=== PATIENT | male | born 1975 | race Two or more races ===

== ENCOUNTER 2020-04-09 23:02 | Emergency (ER) | payer MEDICARE, MEDICAID ==
[~2020-04-09] VITALS: Ht 170.2 cm; Wt 87.5 kg
[2020-04-09] MEDS ORDERED: Acetaminophen 500mg (ES) tab ORAL ONE (23:15)
--- NOTE | 2020-04-09 23:15 | NUR ---
ED Nurse Note: Patient brought into ED from [facility] by [facility] for c/o fever. Per EMS, patient had a fever of 101.1F at facility. Upon ED arrival, patient did not have a fever. Patient currently has no complaint. He is breathing normal and unlabored, stable BP and HR. He is aaox4. No acute distress at this time.
[2020-04-09 23:35] VITALS: BP 121/68
--- NOTE | 2020-04-09 23:36 | Emergency Room Report ---
History of Present Illness General Chief Complaint: Fever Source: Patient Present Illness HPI Disclaimer: Please note that this report is being documented using DRAGON technology. This can lead to erroneous entry secondary to incorrect interpretation by the dictating instrument. HPI: 44-year-old male presents from shelter facility for evaluation of fever. History of paraplegia with chronic stage IV sacral decubitus ulcer, diverting ostomy, chronic Goodman. Patient states he had a temperature of 101 degrees at nursing facility today. He was given Tylenol with good effect however his fever returned. He denies sore throat, nasal congestion, cough, fatigue, diaphoresis, chest pain, palpitations, shortness of breath, nausea, vomiting, diarrhea. Chronic Goodman in place. Denies increased cloudiness. States his sacral wound was evaluated by his wound care physician today determined it appears at baseline and does not require antibiotics at this time. Patient has no complaints. He arrives afebrile. PMH: Paraplegia, chronic Goodman, ostomy PSH: Diverting ostomy, ex lap Allergies: Reviewed Social Hx: Tobacco use Allergies: Coded Allergies: No Known Allergies (Unverified , 04/09/20) COVID-19 Screening Contact w/high risk pt: Yes Experienced COVID-19 symptoms?: Yes COVID-19 Testing performed WET TRIMMER: Yes - 1 week ago COVID-19 Screening: Negative COVID-19 COVID-19 Testing Source: facility Review of Systems All Other Systems: negative except mentioned in HPI Physical Exam Vital Signs Date Time Temp Pulse Resp B/P (MAP) Pulse Ox O2 Delivery O2 Flow Rate FiO2 04/09/20 23:04 100.9 72 22 144/86 (105) 98 Room Air General: Awake and alert, no acute distress HEENT: NC/AT. EOMI. Cardiovascular: RRR. S1 and S2 normal. No murmur appreciated Resp: Normal work of breathing. No cough, wheezing or crackles appreciated Abdomen: Abdomen is soft, nondistended. Obese abdomen. Nontender. Ostomy mucosa pink. No bleeding. No purulent drainage. Midline surgical scar clean dry and intact. : Arrives with Goodman in place. Yellow clear urine in bag. Skin: Intact. Abdominal male surgical sites are clean dry and intact. Stage IV sacral ulcer with clean gauze in place. No purulent drainage. No bleeding. No surrounding edema, erythema or skin breakdown. MSK: Normal tone and bulk. Moving all extremities. No obvious deformity. Neuro: Awake and alert. Mentating appropriately. Medical Decision Making Diagnostic Impression: Primary Impression: Fever Additional Impression: Catheter-associated urinary tract infection ER Course 44-year-old bedbound male with history of chronic Goodman and stage IV decubitus ulcer presents for evaluation of fevers at shelter facility. Arrives afebrile no acute distress. Urinalysis shows positive nitrites, leukocyte esterase, white cells and many bacteria concerning for urinary tract infection. Will treat with ciprofloxacin. Slight elevation in white count. Chest x-ray unremarkable. Rapid COVID-19 swab is negative. Patient aashish afebrile and re sting comfortably on reevaluation. Stable for outpatient follow-up. Will transport back to [facility]. Laboratory Tests Test 04/09/20 23:36 04/10/20 00:01 Urine Color Pale yellow Urine Appearance Cloudy Urine pH 8 (4.5-8.0) Urine Specific [place] 1.010 (1.005-1.035) Urine Protein 2+ (NEGATIVE) H Urine Glucose (UA) Negative (NEGATIVE) Urine Ketones Negative (NEGATIVE) Urine Blood 3+ (NEGATIVE) H Urine Nitrite Positive (NEGATIVE) H Urine Bilirubin Negative (NEGATIVE) Urine Urobilinogen Normal MG/DL (0.0-1.0) Urine Leukocyte Esterase 3+ (NEGATIVE) H Urine RBC 5-10 /HPF (0 - 0) H Urine WBC 30-40 /HPF (0 - 0) H Urine Squamous Epithelial Cells None /LPF (NONE/OCC) Urine Bacteria Many /HPF (NONE) H White Blood Count 16.2 K/UL (4.8-10.8) H Red Blood Count 4.40 M/UL (4.70-6.10) L Hemoglobin 13.3 G/DL (14.2-18.0) L Hematocrit 38.1 % (42.0-52.0) L Mean Corpuscular Volume 86 FL (80-99) Mean Corpuscular Hemoglobin 30.1 PG (27.0-31.0) Mean Corpuscular Hemoglobin Concent 34.9 G/DL (32.0-36.0) Red Cell Distribution Width 15.5 % (11.6-14.8) H Platelet Count 576 K/UL (150-450) H Mean Platelet Volume 6.5 FL (6.5-10.1) Neutrophils (%) (Auto) 80.0 % (45.0-75.0) H Lymphocytes (%) (Auto) 12.9 % (20.0-45.0) L Monocytes (%) (Auto) 4.6 % (1.0-10.0) Eosinophils (%) (Auto) 1.5 % (0.0-3.0) Basophils (%) (Auto) 0.9 % (0.0-2.0) Sodium Level 134 MMOL/L (136-145) L Potassium Level 4.7 MMOL/L (3.5-5.1) Chloride Level 101 MMOL/L (98-107) Carbon Dioxide Level 26 MMOL/L (21-32) Anion Gap 7 mmol/L (5-15) Blood Urea Nitrogen 20 mg/dL (7-18) H Creatinine 0.8 MG/DL (0.55-1.30) Estimated Glomerular Filtration Rate > 60 mL/min (>60) Glucose Level 102 MG/DL (74-106) Calcium Level 8.8 MG/DL (8.5-10.1) Total Bilirubin 0.3 MG/DL (0.2-1.0) Aspartate Amino Transferase (AST) 33 U/L (15-37) Alanine Aminotransferase (ALT) 29 U/L (12-78) Alkaline Phosphatase 204 U/L (46-116) H Total Protein 8.1 G/DL (6.4-8.2) Albumin 2.4 G/DL (3.4-5.0) L Globulin 5.7 g/dL Albumin/Globulin Ratio 0.4 (1.0-2.7) L Microbiology Date/Time Source Procedure Growth Status 04/09/20 23:15 Nasopharynx SARS-CoV-2 RdRp Gene Assay - Final Complete Chest X-Ray Diagnostic Results Chest X-Ray Diagnostic Results : Chest X-Ray Ordered: Yes # of Views/Limited/Complete: 1 View Indication: Other - Fever Interpretation: no consolidation, no effusion, no pneumothorax, no acute cardiopulmonary disease Impression: No acute disease Electronically Signed by: Electronically signed by Dr. Raphael Alva MD Last Vital Signs Date Time Temp Pulse Resp B/P (MAP) Pulse Ox O2 Delivery O2 Flow Rate FiO2 04/09/20 23:04 100.9 72 22 144/86 (105) 98 Room Air Disposition: SNF Condition: Stable Scripts Ciprofloxacin Hcl* (CIPROFLOXACIN HCL*) 500 Mg Tablet 500 MG ORAL Q12H for 10 Days, #20 TAB 0 Refills Prov: Raphael Alva MD 04/10/20 Referrals: Shari Diaz MD (PCP) Raphael Alva MD Apr 09, 2020 23:36
[2020-04-10 00:10] LABS: BILIRUBIN, URINE NEGATIVE (NEGATIVE); COLOR,URINE PALE YELLOW; GLUCOSE, URINE (UA) NEGATIVE (NEGATIVE); KETONES,URINE NEGATIVE (NEGATIVE); LEUKOCYTE ESTERASE ,URINE 3+ (NEGATIVE); NITRITE,URINE POSITIVE (NEGATIVE); PH,URINE 8 (4.5-8.0); PROTEIN,URINE 2+ (NEGATIVE); UROBILINOGEN,URINE NORMAL MG/DL (0.0-1.0)
[2020-04-10 00:18] LABS: APPEARANCE,URINE CLOUDY
[2020-04-10 00:22] LABS: BASOPHILS % (AUTO) 0.9 % (0.0-2.0); EOSINOPHILS % (AUTO) 1.5 % (0.0-3.0); HEMATOCRIT 38.1 % (42.0-52.0); HEMOGLOBIN 13.3 G/DL (14.2-18.0); LYMPHOCYTES % (AUTO) 12.9 % (20.0-45.0); MEAN CORPUSCULAR VOLUME 86 FL (80-99); MONOCYTES % (AUTO) 4.6 % (1.0-10.0); PLATELET COUNT 576 K/UL (150-450); RED CELL DISTRIBUTION WIDTH 15.5 % (11.6-14.8); WHITE BLOOD COUNT 16.2 K/UL (4.8-10.8)
[2020-04-10] MEDS ORDERED: CIPROFLOXACIN500 M2 ORAL (00:24)
[2020-04-10 00:32] LABS: ANION GAP 7 mmol/L (5-15); BLOOD UREA NITROGEN 20 mg/dL (7-18); CALCIUM 8.8 MG/DL (8.5-10.1); CARBON DIOXIDE 26 MMOL/L (21-32); CHLORIDE 101 MMOL/L (98-107); CREATININE 0.8 MG/DL (0.55-1.30); POTASSIUM 4.7 MMOL/L (3.5-5.1); SODIUM 134 MMOL/L (136-145)
[2020-04-10 00:37] LABS: ALANINE AMINOTRANSFERASE 29 U/L (12-78); ALBUMIN 2.4 G/DL (3.4-5.0); ALBUMIN/GLOBULIN RATIO 0.4 (1.0-2.7); ALKALINE PHOSPHATASE 204 U/L (46-116); ASPARTATE AMINO TRANSFERASE 33 U/L (15-37); BILIRUBIN,TOTAL 0.3 MG/DL (0.2-1.0)
[2020-04-10 01:45] VITALS: BP 113/67
--- NOTE | 2020-04-10 01:45 | NUR ---
ED Nurse Note: Patient is stable for transfer back to [facility] at this time. He is being transported back to facilty via [facility] unit [facility]. He is aaox4, breathing is normal and vital signs are stable. IV removed. Patient took all belongings with him. SNF made aware that patient is returning to facility by charge master specialist.
--- NOTE | 2020-04-10 16:52 | Diagnostic Imaging Report ---
Indication: Shortness of breath Technique: One view of the chest Comparison: none Findings: There is questionable mild peripheral interstitial prominence and central bronchial wall thickening. No infiltrates. The heart size is normal. The pleural spaces are clear. There is evidence of prior thoracolumbar spine fusion surgery. Impression: Equivocal mild interstitial disease and central bronchial wall thickening, acuity indeterminate if real. Correlate with clinical findings Negative for infiltrate
== END 2020-04-10 01:45 ==
LOC: EDBD 23:02 → EMR 23:20
DX: T83.518A Infection and inflammatory reaction due to other urinary catheter, initial encounter (principal); R50.9 Fever, unspecified; L89.154 Pressure ulcer of sacral region, stage 4; G82.20 Paraplegia, unspecified; Z93.3 Colostomy status; Z96.0 Presence of urogenital implants
CPT/HCPCS: 36415; 71045; 80053; 81003; 85025; 87086; 87181; 99284; U0002